=== PATIENT | male | born 1990 | race Caucasian/White ===

== ENCOUNTER → 2024-01-27 09:11 | Outpatient (REF) | payer OTHER, SELFPAY | LOC: RAD 09:11 | PROVIDERS: ATTENDING PHYSICIAN Nurse Practitioner Family; FAMILY PHYSICIAN Family Medicine | DX: R10.32 Left lower quadrant pain (principal) | CPT/HCPCS: 74177; Q9967 ==

== ENCOUNTER → 2025-02-25 17:49 | Outpatient (REF) | payer OTHER, SELFPAY | LOC: MRI 17:49 | PROVIDERS: ATTENDING PHYSICIAN Student in an Organized Health Care Education/Training Program; FAMILY PHYSICIAN Family Medicine | DX: M41.42 Neuromuscular scoliosis, cervical region (principal); M54.16 Radiculopathy, lumbar region | CPT/HCPCS: 72148; 73718 ==